=== PATIENT | male | born 1945 ===

== ENCOUNTER → 2019-03-14 12:27 | Outpatient (CLI) | payer MEDICARE ==
[2019-03-14 13:06] LABS: HEMATOCRIT 36.2 % (42.0-54.0); HEMOGLOBIN 12.1 g/dL (13.5-17.5); MCH 29.5 pg (26.0-34.0); MCHC 33.4 g/dL (31.0-37.0); MCV 88.3 fL (80.0-100.0); MEAN PLATELET VOLUME 9.9 fL (7.4-10.4); PLATELET COUNT 161 10x3/uL (130-400); RDW 14.3 % (11.5-14.5)
[2019-03-14 14:44] LABS: ANISOCYTOSIS OCC; CRENATED CELLS OCC; LYMPHOCYTES 24 % (15-50); MONOCYTES 9 % (2-11); NEUTROPHILS 64 % (40-80); PLATELET ESTIMATE NORMAL; ROULEAUX OCC
== END | disposition home or self-care (01) ==
LOC: D.LABREF 12:27
PROVIDERS: ATTEND Family Medicine
DX: K92.2 Gastrointestinal hemorrhage, unspecified (principal); D64.9 Anemia, unspecified